=== PATIENT | male | born 1960 | race Two or more races ===

== ENCOUNTER 2018-07-06 12:03 | Emergency (ER) | payer SELFPAY ==
[~2018-07-06] VITALS: Ht 170.2 cm; Wt 83.9 kg
[2018-07-06 12:10] VITALS: BP 190/109
[2018-07-06] MEDS ORDERED: NKM (12:15)
[2018-07-06] MEDS ORDERED: Tylenol #3 tab (300mg/30mg) ORAL ONE (13:00)
--- NOTE | 2018-07-06 13:33 | Emergency Room Report ---
History of Present Illness General Chief Complaint: Multiple Trauma/Fall Source: Patient Present Illness HPI 58-year-old male presents to the emergency department complaining of 6 out of 10 in severity pain localized to the right elbow and right wrist along with associated posterior elbow laceration times one hour. Patient also reports some tenderness to the right side of his head. Patient states that he was approximately 6 feet up on a ladder when the ladder slipped and he fell to the ground. Patient describes majority of the impact occurring on his elbow however he states he did hit his head and was slightly confused/out of it for a minute or so afterwards. Patient denies nausea, vomiting, chest pain, midline neck or back pain. Patient does report some soreness on the right side of his neck. Patient denies taking blood thinning medications states he does not have any significant past medical history. Patient does not know when his last tetanus vaccination was. Denies numbness tingling or loss of sensation or gross motor movements of the extremities, incontinence of bowel or bladder. Denies CP , Palpitations, LOC, AMS, dizziness, Changes in Vision, weakness or a sudden severe headache. Allergies: Coded Allergies: No Known Allergies (Unverified , 07/06/18) Patient History Past Medical History: see triage record Past Surgical History: none Pertinent Family History: none Reviewed Nursing Documentation: PMH: Agreed; PSxH: Agreed Nursing Documentation-PMH Past Medical History: No Stated History Review of Systems All Other Systems: negative except mentioned in HPI Physical Exam Vital Signs Date Time Temp Pulse Resp B/P (MAP) Pulse Ox O2 Delivery O2 Flow Rate FiO2 07/06/18 12:09 98.1 79 20 190/109 96 Room Air Sp02 EP Interpretation: reviewed, normal General Appearance: no apparent distress, alert, GCS 15, non-toxic Head: normocephalic, other - TTP to the right parietal area of scalp, no hematoma noted. Eyes: bilateral eye normal inspection, bilateral eye PERRL ENT: hearing grossly normal, normal voice Neck: full range of motion Respiratory: chest non-tender, lungs clear, normal breath sounds, speaking full sentences Cardiovascular #1: regular rate, rhythm, normal capillary refill Cardiovascular #2: 2+ radial (R), 2+ radial (L) Gastrointestinal: non tender, soft, other - no abdominal bruising. Musculoskeletal: back normal, gait/station normal, normal range of motion, other - Laceration overlying the elbow 2.5cm in length. No weakness noted on UE testing. FROM, tender - TTP to the right side of the head, Right elbow and right wrist. Pt reports swelling to the right elbow and right wrist. pt. is right hand dominant. Neurologic: alert, oriented x3, responsive, motor strength/tone normal, sensory intact, speech normal, grossly normal Psychiatric: judgement/insight normal Skin: normal color, no rash, warm/dry, well hydrated, laceration - 2.5cm laceration to the posterior right elbow with visible gross contamination . Procedures Laceration/Wound Repair Laceration/Wound Repair : Consent: Verbal Wound Location: upper extremity - right elbow Wound's Depth, Shape: linear Wound Length (cm): 3 Wound Explored: contaminated Irrigated w/ Saline (ccs): 1500 Anesthesia: Lidocaine w/ Epi Volume Anesthetic (ccs): 3 Wound Repaired With: tao - 3 Number of Sutures: 3 Layer Closure?: No Sterile Dressing Applied?: No Splint Applied?: Yes Sling Applied?: Yes Patient Tolerated: Well Complications: None Progress Per orthopedic consult- aggressive irrigation and closed loosely with tao and allow room for drainage Medical Decision Making PA Attestation Dr. Ames is my supervising Physician whom patient management has been discussed with. Diagnostic Impression: Primary Impression: Elbow fracture, right Qualified Codes: S42.401B - Unspecified fracture of lower end of right humerus , initial encounter for open fracture Additional Impressions: Contusion of head Qualified Codes: S00.83XA - Contusion of other part of head, initial encounter Fall from ladder Qualified Codes: W11.XXXA - Fall on and from ladder, initial encounter Triquetral fracture Qualified Codes: S62.114A - Nondisplaced fracture of triquetrum [cuneiform] bone, right wrist, initial encounter for closed fracture Laceration ER Course 58-year-old male presents to the emergency department complaining of 6 out of 10 in severity pain localized to the right elbow and right wrist along with associated posterior elbow laceration times one hour. Patient also reports some tenderness to the right side of his head. Patient states that he was approximately 6 feet up on a ladder when the ladder slipped and he fell to the ground. Patient describes majority of the impact occurring on his elbow however he states he did hit his head and was slightly confused/out of it for a minute or so afterwards. Patient denies nausea, vomiting, chest pain, midline neck or back pain. Patient does report some soreness on the right side of his neck. Patient denies taking blood thinning medications states he does not have any significant past medical history. Patient does not know when his last tetanus vaccination was. Denies numbness tingling or loss of sensation or gross motor movements of the extremities, incontinence of bowel or bladder. Denies CP , Palpitations, LOC, AMS, dizziness, Changes in Vision, weakness or a sudden severe headache. Ddx considered but are not limited to Fracture, dislocation, contusion, Sprain/ Strain/Spasm, laceration, tendon injury, cellulitis, amputation Vital signs: are WNL, pt. is afebrile H&PE are most consistent with musculoskeletal injury will perform imaging to r/ o fractures/dislocations. Right Elbow laceration approx 3 cm in length ORDERS: - X-ray RIGHT ELBOW + RIGHT WRIST - Comminuted Olecranon process fracture of the right elbow noted. On wrist x-ray questionable triquetral fracture noted on the lateral view. ED INTERVENTIONS: -Tetanus vaccine was administered as pt. vaccination status was unknown. - The wound was copiously irrigated with normal saline, and explored for foreign body for which no FB was found. - pt. is anesthetized with 1%lidocaine w. epi. - The wound was approximated and loosely closed using 3 tao. Orthopedic consult with Dr. Elmore who also reviewed this patient's images states that patient is stable for close outpatient follow-up with oral antibiotics after course of IV antibiotics in the emergency department. Patient will be given orthopedic follow-up referral. Dr. Elmore recommends loosely closing laceration to allow ability to drain if necessary. Long arm posterior splint applied to the right arm by scada technician. Pt. remains neurovascularly intact. - Right arm Sling applied by scada technician. Pt. remains neurovascularly intact. -Pt given copy of his Imaging on CD to take with him to orthopedic follow up. - d/w pt. that it is very important for him to watch for signs of infection as this is called an open fracture and infection is high and can cause serious complications. DISCHARGE: At this time pt. is stable for d/c to home. Will provide printed patient care instructions, and any necessary prescriptions. Care plan and follow up instructions have been discussed with the patient prior to discharge. Other X-Ray Diagnostic Results Other X-Ray Diagnostic Results #1: X-Ray ordered: Right Elbow # of Views/Limited Vs Complete: 3 View Indication: Pain EP Interpretation: Yes PA Xray: Interpretation reviewed, by supervising MD Interpretation: no dislocation, other - Olecranon process fracture Impression: Other - abnormal- fx Electronically Signed by: Brianna Martin PA-C Other X-Ray Diagnostic Results #2: X-Ray ordered: Right wrist # of Views/Limited Vs Complete: 3 View Indication: Pain EP Interpretation: Yes PA Xray: Interpretation reviewed, by supervising MD, and agrees with findings. Interpretation: no dislocation, no soft tissue swelling, other - Questionable Triquetral fracture Impression: No acute disease Electronically Signed by: Brianna Martin PA-C CT/MRI/US Diagnostic Results CT/MRI/US Diagnostic Results #1: Imaging Test Ordered: CT head no contrast Impression No evidence of acute fracture, hemorrhage, or intracranial process --Per official radiology report - Please see report for specific details. CT/MRI/US Diagnostic Results #2: Imaging Test Ordered: CT C-Spine Impression no acute fractures -Per official radiology report- Please see report for specific details. Last Vital Signs Date Time Temp Pulse Resp B/P (MAP) Pulse Ox O2 Delivery O2 Flow Rate FiO2 07/06/18 12:10 98.1 78 20 190/109 96 Room Air Disposition: HOME, SELF-CARE Condition: Stable Scripts Amoxicillin/Potassium Clav 875-125* (AUGMENTIN 875-125 TABLET*) 1 Each Tablet 1 TAB ORAL TWICE A DAY for 7 Days, #14 TAB Prov: Brianna Martin 07/06/18 Ibuprofen* (MOTRIN*) 600 Mg Tablet 600 MG ORAL THREE TIMES A DAY, #30 TAB 0 Refills Prov: Brianan Martin 07/06/18 Hydrocodone Bit/Acetaminophen 5-325* (NORCO 5-325*) 1 Each Tablet 1 TAB ORAL Q6H PRN for For Pain, #10 TAB 0 Refills Prov: Brianna Martin 07/06/18 Referrals: NOT CHOSEN IPA/MD,REFERRING (PCP) Patient Instructions: Elbow Fracture, Simple, Laceration Care, Adult, Easy-to- Read, Wrist Fracture, [id number] Additional Instructions: Take medications as directed. Follow up with an [facility] in 3-5 days, even if your symptoms have resolved. If symptoms persist MRI may be required at the discretion of your PCP or Ortho Specialist. --Please review list of primary care clinics, if you do not already have a primary care provider who can give you an Orthopedic Referral. Return sooner to ED if new symptoms occur, or current symptoms become worse. Do not drink alcohol, drive, or operate heavy machinery while taking [place] as this may cause drowsiness. - Please note that this Emergency Department Report was dictated using [employer] medical transcriptionist technology software, occasionally this can lead to erroneous entry secondary to interpretation by the dictation equipment. Brianna Martin Jul 06, 2018 13:33
--- NOTE | 2018-07-06 13:45 | Diagnostic Imaging Report ---
Indication: Head pain, status post fall off of ladder Technique: Continuous helical CT scanning of the head was performed without intravenous contrast material. Axial and coronal 5 mm sections were generated. Radiation dose was minimized using automated exposure control Dose: Total Dose Length Product - DLP 1358.[address] Dose Index - CTDIvol(s) 70.38 mGy. Comparison: none Findings: The ventricular system is normal in size and configuration. There is no shift of midline structures. No abnormal extra-axial fluid collections are noted. There is no evidence of intracerebral bleeding. No other abnormal high or low density areas are noted within the brain. Normal stanley-white differentiation. Intact calvarium. Mastoids are clear. The visualized sinuses are clear. The visualized orbits are unremarkable. Impression: Normal CT scan of the head without contrast material. The CT scanner at [facility] is accredited by the [employer] and the scans are performed using protocols designed to limit radiation exposure to as low as reasonably achievable to attain images of sufficient resolution adequate for diagnostic evaluation.
--- NOTE | 2018-07-06 13:53 | Diagnostic Imaging Report ---
Indications:Pain, status post fall Technique: Three or 4 views of the elbow Comparison: None Findings: There is a comminuted fracture of the tip of the olecranon. Densities scattered throughout the posterior soft tissues of the elbow may reflect bone fragments or radiopaque foreign bodies. There is a soft tissue defect posterior to the olecranon indicating penetrating trauma. No through and through fracture demonstrated. No joint effusion demonstrated. The joint spaces are preserved. Impression: Positive for comminuted olecranon fracture; appearance is suggestive of penetrating trauma with direct blow. Punctate densities scattered throughout the soft tissues, may reflect either bone fragments, radiopaque foreign bodies, or combination of both Findings discussed by phone with Brianna Martin, nurse practitioner, in the emergency room at the time of interpretation
--- NOTE | 2018-07-06 13:59 | Diagnostic Imaging Report ---
Indication: Neck pain, status post fall from ladder Technique: Spiral acquisitions obtained through the cervical spine. No IV contrast utilized. Multiplanar reconstructions were generated. Total dose length product 377.95 mGycm. CTDIvol(s) 16.12 mGy. Dose reduction achieved using automated exposure control. Comparison: none Findings: Bony alignment is normal. Vertebral body heights are preserved. The disc spaces are preserved. No acute fractures. No dislocations. There is a small focal intravertebral disc herniation into the superior endplate of C7. At C5-6, there is mild posterior broad-based disc protrusion which results in mild spinal canal stenosis. This may impinge slightly upon the anterior aspect of the cord. At C6-7, there is central posterior disc protrusion which results in mild narrowing the spinal canal. There is also mild narrowing of the right neural foramen. At the remaining disc levels, no significant disc bulge or protrusion, spinal stenosis, or neural foraminal stenosis. The included extra spinal soft tissues are unremarkable for a 3 mm nodule in the right thyroid lobe. Impression: No acute bony trauma Mild degenerative changes, as described 3 mm right lobe thyroid nodule, certainly benign. No further follow-up necessary The CT scanner at [facility] is accredited by the [employer] and the scans are performed using protocols designed to limit radiation exposure to as low as reasonably achievable to attain images of sufficient resolution adequate for diagnostic evaluation.
[2018-07-06] MEDS ORDERED: Lidocaine 1% 10mg/ml/Epi 0.005mg/ml 30ml vial INJ ONE (14:15)
[2018-07-06] MEDS ORDERED: ceFAZolin 1gm/50ml Premix 50 ML IV ONE (14:15)
[2018-07-06] MEDS ORDERED: Tetanus/Diptheria/Pertussis Vaccine 0.5ml Syr IM ONE (14:30)
--- NOTE | 2018-07-06 15:22 | Diagnostic Imaging Report ---
Clinical Indication:Pain status post fall Technique: 3 views of the right wrist Comparison: None Findings: There is questionable slight irregularity of a small lucency within the dorsal aspect of the triquetrum on the lateral view. No overlying soft tissue swelling, however. No other evidence of acute fracture. No dislocations. The joint spaces are preserved. There is suggestion of some degenerative remodeling of the first metacarpal head, although there is no joint space narrowing. Impression: Questionable triquetral fracture, seen only on the lateral view. Correlate with clinical findings. Findings discussed by phone with Brianna Martin, ER nurse practitioner, in the emergency room at the time of interpretation
[2018-07-06] MEDS ORDERED: AUGMENTIN 875-1 EAC1 ORAL (16:39)
[2018-07-06] MEDS ORDERED: IBUPROFEN600 MG ORAL (16:39)
[2018-07-06] MEDS ORDERED: NORCO 5-325 TA1 EACH ORAL (16:39)
[2018-07-06 17:40] VITALS: BP 155/103
== END 2018-07-06 17:30 | disposition home or self-care (01) ==
LOC: EMR 12:35
DX: S42.401A Unspecified fracture of lower end of right humerus, initial encounter for closed fracture (principal); S00.93XA Contusion of unspecified part of head, initial encounter; S52.021A Displaced fracture of olecranon process without intraarticular extension of right ulna, initial encounter for closed fracture; S62.111A Displaced fracture of triquetrum [cuneiform] bone, right wrist, initial encounter for closed fracture; W11.XXXA Fall on and from ladder, initial encounter; Y92.89 Other specified places as the place of occurrence of the external cause; S51.011A Laceration without foreign body of right elbow, initial encounter; Z23 Encounter for immunization; R51 Headache
CPT/HCPCS: 12001; 70450; 72125; 73080; 73110; 90471; 90715; 96365; 99284; J0690